=== PATIENT | male | born 1995 | race Two or more races ===

== ENCOUNTER 2025-04-02 10:18 | Emergency (ER) | payer MEDICAID, SELFPAY ==
[2025-04-02 10:23] VITALS: BP 122/65; PULSE 97; RESP 16; TEMP 36.6; O2SAT 95; BMI 25.0
[2025-04-02 10:29] VITALS: PULSE 94; O2SAT 99; BMI 25.0
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
--- NOTE | 2025-04-02 10:42 | XR_ITS ---
Examination: CT brain head without contrast. 2-D sagittal coronal reconstructions Date and time of exam:April 02, 2025 1103 hours INDICATIONS: Seizure with dizziness today CTDI: vol (mGy):51.2 DLP: (mGycm):1033 Technique: Multiple CT axial sections of the brain have been obtained, 5 mm slice thickness. Contrast has not been administered. 2-D sagittal, coronal reconstructions have been obtained Low dose protocols were performed. One or more of the following dose reduction techniques were used; automated exposure control, adjustment of the mA and/or KV according to patient size, use of iterative reconstruction technique. Findings: No significant ventricular enlargement. Intra-axial or extra-axial hemorrhage density is not seen. No mass effect or midline shift Basal cisterns are not remarkable. Fourth ventricle is midline. Cranial vault intact. Impression: Negative for acute hemorrhage, mass effect or midline shift Consider elective brain MRI follow-up, pre and postcontrast, seizure protocol
--- NOTE | 2025-04-02 10:42 | EKG_ITS ---
[facility] Test Date: 2025-04-02 Pat Name: STANTON SEVERINO Department: Room: - Gender: Male [place]: : 1995 Requested By: Caro Coughlin Order Number: [id number] Reading MD: Caro Coughlin Measurements Intervals [place] Rate: 64 P: 56 RI: 166 QRS: 65 QRSD: 101 T: 28 QT: 359 QTc: 371 Interpretive Statements SINUS RHYTHM WITH SINUS ARRHYTHMIA No previous ECG available for comparison /store/S0/[id number]/ecg/[id number].pdf
[2025-04-02 11:37] LABS: Basophils # (Auto) 0.0 Thou/mm3 (0.0-0.2); Basophils % (Auto) 0 % (0-2.5); Eosinophils # (Auto) 0.0 Thou/mm3 (0.0-0.5); Eosinophils % (Auto) 0 % (0-10); Hematocrit 43.3 % (41.0-53.0); Hemoglobin 15.2 g/dL (13.5-16.0); Immature Granulocytes Auto 0.01 Thou/mm3 (0.00-0.00); Lymphocytes # (Auto) 1.1 Thou/mm3 (1.0-4.8); Lymphocytes % (Auto) 14 % (10-50); Mean Corpuscular HGB Conc 35.1 g/dl (31.0-37.0); Mean Corpuscular Hemoglobin 30.1 pg (25.0-35.0); Mean Corpuscular Volume 86 fL (80-100); Monocytes # (Auto) 0.3 Thou/mm3 (0.0-0.8); Monocytes % (Auto) 4 % (0-12); Neutrophils # (Auto) 6.4 Thou/mm3 (1.8-7.7); Neutrophils % (Auto) 81 % (37-80); Nucleated Red Blood Cell # 0.00 Thou/mm3 (0.00-0.00); Nucleated Red Blood Cell % 0 /100 WBC (0); Platelet Count 210 Thou/mm3 (140-440); RDW Standard Deviation 38.5 fL (35.1-43.9); Red Blood Count 5.05 Miln/mm3 (4.50-5.90); White Blood Count 7.9 Thou/mm3 (3.8-10.6)
[2025-04-02 11:58] LABS: Alanine Aminotransferase 7 U/L (10-49); Albumin, Serum 4.8 gm/dL (3.5-5.0); Albumin/Globulin Ratio 2.5 (1.2-2.2); Alkaline Phosphatase 66 U/L (46-116); Anion Gap 5 (7-16); Aspartate Amino Transferase 14 U/L (0-34); BUN/Creatinine Ratio 11 Ratio (12-20); Bilirubin,Total 0.4 mg/dL (0.3-1.2); Blood Urea Nitrogen 11 mg/dL (9-23); Calcium 9.9 mg/dL (8.3-10.6); Calcium (Corrected) 9.9 mg/dL (8.5-10.1); Carbon Dioxide 27.6 mMol/L (20.0-31.0); Chloride 105 mMol/L (98-107); Creatinine (Component) 1.0 mg/dL (0.6-1.3); Estimated Creatinine Clearance 101.9 mL/min (>60); Globulin 1.9 gm/dL (2.3-3.5); Glucose 91 mg/dL (74-106); Lipase 23 U/L (12-53); Magnesium 1.6 mg/dL (1.6-2.6); Osmolality,Calculated 275 (275-295); Potassium 4.0 mMol/L (3.4-5.1); Sodium 138 mMol/L (136-145); Total Protein 6.7 gm/dL (5.7-8.2); eGFR > 60 See Note
[2025-04-02 12:07] VITALS: PULSE 73
[2025-04-02 13:31] LABS: Collection Type, Urine Clean Catch
[2025-04-02 13:52] LABS: Amphetamine/Methamp Scrn,U Negative (Negative); Barbiturate Screen,Urine Negative (Negative); Benzodiazepines Screen,Urine Negative (Negative); Benzoylecgonine Screen, Ur Negative (Negative); Fentanyl Screen,Urine Negative (Negative); Opiate Screen,Urine Negative (Negative); THC Screen,Urine Negative (Negative)
[2025-04-02 13:58] LABS: Bacteria,Urine Rare; Bilirubin,Urine Negative (Negative); Blood,Urine Negative (Negative); Calcium Oxalate Crystals,Urine 2+; Clarity,Urine Turbid (Clear/Hazy); Color,Urine Drk-Yellow (Lt Yel-Yel); Glucose, Urine Negative (Negative); Ketones,Urine 2+ (Negative); Leukocyte Esterase,Urine Positive (Negative); Nitrite,Urine Negative (Negative); PH,Urine 6.0 (5.0-7.0); Protein,Urine 2+ (Neg - Trace); RBC,Urine 17 /hpf (0-3); Specific Gravity,Urine 1.038 (1.001-1.035); Squamous Epithelial Cell,Urine 4 /hpf (0-5); Urobilinogen,Urine 6.0 mg/dL (0.0-1.0); WBC,Urine 34 /hpf (0-5)
[2025-04-02 14:09] LABS: Hyaline Casts,Urine 1 /hpf (0-1)
[2025-04-02] MEDS: SODIUM CHLORIDE 0.9% 1000 ML 1,000 ML 999 ML IV (15:05)
[2025-04-02 15:06] VITALS: BP 115/56; PULSE 67; RESP 17; TEMP 37.1; O2SAT 99
[2025-04-07 07:04] LABS: Prolactin* 6.2 ng/mL (2.0-18.0)
== END 2025-04-02 16:17 | disposition home or self-care (01) ==
PROVIDERS: Emergency Provider Family Medicine; PCP Internal Medicine
DX: G40.909 Epilepsy, unspecified, not intractable, without status epilepticus (principal); I49.8 Other specified cardiac arrhythmias
CPT/HCPCS: 36415; 70450; 80053; 80307; 81001; 83690; 83735; 84146; 85025; 93005; 96360; 99283; J7030

== ENCOUNTER 2025-04-08 09:21 | Emergency (ER) | payer MEDICAID, SELFPAY ==
[2025-04-08 09:51] VITALS: O2SAT 95; BMI 24.3
[2025-04-08 09:57] VITALS: PULSE 69
[2025-04-08 10:30] LABS: Collection Type, Urine Clean Catch
[2025-04-08 10:33] LABS: Basophils # (Auto) 0.0 Thou/mm3 (0.0-0.2); Basophils % (Auto) 0 % (0-2.5); Eosinophils # (Auto) 0.0 Thou/mm3 (0.0-0.5); Eosinophils % (Auto) 0 % (0-10); Hematocrit 45.5 % (41.0-53.0); Hemoglobin 15.9 g/dL (13.5-16.0); Immature Granulocytes Auto 0.03 Thou/mm3 (0.00-0.00); Lymphocytes # (Auto) 1.0 Thou/mm3 (1.0-4.8); Lymphocytes % (Auto) 12 % (10-50); Mean Corpuscular HGB Conc 34.9 g/dl (31.0-37.0); Mean Corpuscular Hemoglobin 30.5 pg (25.0-35.0); Mean Corpuscular Volume 87 fL (80-100); Monocytes # (Auto) 0.3 Thou/mm3 (0.0-0.8); Monocytes % (Auto) 4 % (0-12); Neutrophils # (Auto) 7.6 Thou/mm3 (1.8-7.7); Neutrophils % (Auto) 84 % (37-80); Nucleated Red Blood Cell # 0.00 Thou/mm3 (0.00-0.00); Nucleated Red Blood Cell % 0 /100 WBC (0); Platelet Count 189 Thou/mm3 (140-440); RDW Standard Deviation 40.4 fL (35.1-43.9); Red Blood Count 5.21 Miln/mm3 (4.50-5.90); White Blood Count 9.1 Thou/mm3 (3.8-10.6)
[2025-04-08 10:39] LABS: Bilirubin,Urine Negative (Negative); Blood,Urine Negative (Negative); Clarity,Urine Clear (Clear/Hazy); Color,Urine Colorless (Lt Yel-Yel); Glucose, Urine Negative (Negative); Ketones,Urine Negative (Negative); Leukocyte Esterase,Urine Negative (Negative); Nitrite,Urine Negative (Negative); PH,Urine 8.0 (5.0-7.0); Protein,Urine Negative (Neg - Trace); RBC,Urine 3 /hpf (0-3); Specific Gravity,Urine 1.019 (1.001-1.035); Squamous Epithelial Cell,Urine < 1 /hpf (0-5); Urobilinogen,Urine Negative mg/dL (0.0-1.0); WBC,Urine 1 /hpf (0-5)
[2025-04-08 10:53] LABS: INR 1.0 (0.9-1.3); Prothrombin Time 11.2 Seconds (9.0-12.2)
[2025-04-08 11:02] LABS: Alanine Aminotransferase 8 U/L (10-49); Albumin, Serum 4.6 gm/dL (3.5-5.0); Albumin/Globulin Ratio 2.3 (1.2-2.2); Alkaline Phosphatase 65 U/L (46-116); Anion Gap 9 (7-16); Aspartate Amino Transferase 15 U/L (0-34); BUN/Creatinine Ratio 13 Ratio (12-20); Bilirubin,Total 0.5 mg/dL (0.3-1.2); Blood Urea Nitrogen 12 mg/dL (9-23); Calcium 9.8 mg/dL (8.3-10.6); Calcium (Corrected) 9.8 mg/dL (8.5-10.1); Carbon Dioxide 26.2 mMol/L (20.0-31.0); Chloride 107 mMol/L (98-107); Creatinine (Component) 0.9 mg/dL (0.6-1.3); Estimated Creatinine Clearance 113.2 mL/min (>60); Globulin 2.0 gm/dL (2.3-3.5); Glucose 81 mg/dL (74-106); Osmolality,Calculated 281 (275-295); Potassium 4.2 mMol/L (3.4-5.1); Sodium 142 mMol/L (136-145); Total Protein 6.6 gm/dL (5.7-8.2); eGFR > 60 See Note
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
[2025-04-08] MEDS: [UNRECOGNIZED DRUG - OTHER] IVP (12:00)
[2025-04-08] MEDS: PHENOBARBITAL 100 MG IVP (12:00)
[2025-04-08] MEDS: SODIUM CHLORIDE 0.9% IVP (12:00)
[2025-04-08] MEDS: DIAZEPAM INJ 5 MG/ML VIAL 2 ML IVP ×2 (12:05→12:42)
[2025-04-08] MEDS: ACETAMINOPHEN 325 MG TABLET 650 MG PO (14:04)
[2025-04-08 15:03] VITALS: BP 122/65; PULSE 75; RESP 17; TEMP 37.7; O2SAT 95
--- NOTE | 2025-04-08 15:25 | PC.NURSE ---
Pt confused and combative. Pt father decided to take pt to another facility for care. AMA paperwork signed by pt father. Risks of leaving AMA explained to pt and father
== END 2025-04-08 15:25 | disposition left against medical advice (07) ==
PROVIDERS: Emergency Provider Family Medicine; PCP Internal Medicine
DX: R56.9 Unspecified convulsions (principal)
CPT/HCPCS: 36415; 80053; 81001; 85025; 85610; 96374; 96375; 96376; 99283; A4216; J1200; J2560; J3360; J3486; A9270